=== PATIENT | male | born 1975 | race African-American/Black ===

== ENCOUNTER 2019-03-28 15:06 | Observation (INO) ==
[2019-03-28] MEDS ORDERED: NITROGLYCERIN SL 0.4 MG TABLET SL PRN (18:58)
[2019-03-28 19:47] LABS: Basophils # 0.1 10*3/uL (0.0-0.2); Basophils % 0.7 % (0.0-0.8); Eosinophils # 0.1 10*3/uL (0.0-0.87); Eosinophils % 1.6 % (0.00-10.9); Hematocrit 37.7 VOL% (42.0-52.0); Hemoglobin 12.9 GM/DL (14.0-18.0); Immature Granulocytes % 0.1 %; Immature Granulocytes Absolute 0.01 #; Lymphocytes # 1.6 10*3/uL (1.4-4.0); Lymphocytes % 19.1 % (21.2-54.2); Mean Corpuscular HGB Conc 34.2 GM/DL (32-36); Mean Corpuscular Volume 99.7 FL (87-102); Mean Platelet Volume 10.5 FL (9.6-12.0); Monocytes % 4.8 % (1.7-12.7); Neutrophils % 73.7 % (38.7-73.9); Platelet Count 264 T/CUMM (130-400); Red Blood Count 3.78 MC/CUMM (3.8-5.5); Red Cell Distribution Width 13.3 % (9.3-17.3); White Blood Count 8.3 T/CUMM (4-12)
[2019-03-28 20:05] LABS: Alanine Aminotransferase 49 U/L (16-61); Albumin 3.9 G/DL (3.4-5.0); Alkaline Phosphatase 115 U/L (45-117); Aspartate Amino Transferase 57 U/L (0-37); Blood Urea Nitrogen 20 MG/DL (7-18); Calcium 9.7 MG/DL (8.5-10.1); Glucose 80 MG/DL (74-106); Osmolality,Calculated 276.7 MOS/KG (273-304); Total Protein 7.9 G/DL (6.4-8.3)
[2019-03-28 20:08] LABS: Troponin I 0.061 NG/ML (0.00-0.045)
[2019-03-28] MEDS: ASPIRIN EC 325 MG TABLET PO SCH (21:15)
[2019-03-28] MEDS: FOLIC ACID 1 MG TABLET PO SCH (21:16)
[2019-03-28] MEDS: chlordiazePOXIDE 10 MG CAPSULE PO SCH (21:16)
[2019-03-28] MEDS: FUROSEMIDE 20 MG/2 ML VIAL IV SCH (21:16)
[2019-03-28] MEDS ORDERED: DOCUSATE SODIUM 100 MG CAPSULE PO PRN (22:02)
[2019-03-28] MEDS ORDERED: ACETAMINOPHEN 325 MG TABLET PO PRN (22:02)
[2019-03-28] MEDS ORDERED: ONDANSETRON 4 MG/2 ML VIAL IV PRN (22:02)
[2019-03-29 02:28] LABS: Thyroid Stimulating Hormone 0.586 uIU/ml (0.358-3.74)
[2019-03-29] MEDS ORDERED: ENOXAPARIN 40 MG/0.4 ML SYRINGE SUBCUT SCH (09:00)
[2019-03-29] MEDS: chlordiazePOXIDE 10 MG CAPSULE PO SCH ×4 (09:09→21:00)
[2019-03-29] MEDS: FUROSEMIDE 20 MG/2 ML VIAL IV SCH (09:09)
[2019-03-29] MEDS: NICOTINE 21 MG/24 HR PATCH TRANSDERM SCH (09:09)
[2019-03-29] MEDS: ASPIRIN EC 325 MG TABLET PO SCH (09:09)
[2019-03-29] MEDS: THIAMINE 100 MG TABLET PO SCH (09:09)
[2019-03-29 09:53] LABS: Barbiturates Screen,Urine Negative (Negative); Benzodiazepines Screen,Urine Positive (Negative); Cannabinoid Screen,Urine Positive (Negative); Opiate Screen,Urine Negative (Negative); Phencyclidine Screen,Urine Negative (Negative)
[2019-03-29 10:13] LABS: Apearance,Urine CLEAR (Clear); Bilirubin,Urine Negative (Negative); Blood, Urine Small mg/dL (Negative); Glucose,Urine (UA) Negative (Negative); Ketones,Urine 20 mg/dL (Negative); Mucus,Urine Occasional /LPF (Occasional); Nitrite,Urine Negative (Negative); Protein,Urine Negative; RBC,Urine 3 /HPF (0-4); Squamous Epithelial Cell,Urine Occasional /HPF (0-10); Urine Color Yellow (Yellow); Urine Specific Gravity 1.038 (1.001-1.035); Urine Urobilinogen < 2.0 EU/DL (0.2-1.0); WBC,Urine 1 /HPF (0-6)
[2019-03-29] MEDS ORDERED: POTASSIUM CHLORIDE RIDER 10 MEQ in PREMIX 1 EACH IV PRN (11:01)
[2019-03-29] MEDS ORDERED: MAGNESIUM SULF RIDER 2 GM in PREMIX 1 EACH IV PRN (11:01)
[2019-03-29] MEDS ORDERED: MAGNESIUM SULF RIDER 4 GM in PREMIX 1 EACH IV ONE (11:07)
[2019-03-29] MEDS: LISINOPRIL 2.5 MG TABLET PO SCH (11:39)
[2019-03-29] MEDS: CARVEDILOL 3.125 MG TABLET PO SCH ×2 (11:39→21:00)
[2019-03-29] MEDS: HEPARIN 5,000 UNIT/1 ML VIAL SUBCUT SCH ×2 (11:39→15:06)
[2019-03-29] MEDS: FOLIC ACID 1 MG TABLET PO SCH (21:00)
[2019-03-30] MEDS: HEPARIN 5,000 UNIT/1 ML VIAL SUBCUT SCH ×3 (00:05→16:33)
[2019-03-30 04:48] LABS: Basophils # 0.1 10*3/uL (0.0-0.2); Basophils % 0.9 % (0.0-0.8); Eosinophils # 0.4 10*3/uL (0.0-0.87); Eosinophils % 6.9 % (0.00-10.9); Hematocrit 38.7 VOL% (42.0-52.0); Hemoglobin 13.1 GM/DL (14.0-18.0); Immature Granulocytes % 0.4 %; Immature Granulocytes Absolute 0.02 #; Lymphocytes # 1.9 10*3/uL (1.4-4.0); Lymphocytes % 36.1 % (21.2-54.2); Mean Corpuscular HGB Conc 33.9 GM/DL (32-36); Mean Platelet Volume 10.8 FL (9.6-12.0); Monocytes % 10.6 % (1.7-12.7); Neutrophils % 45.1 % (38.7-73.9); Platelet Count 255 T/CUMM (130-400); Red Blood Count 3.91 MC/CUMM (3.8-5.5); Red Cell Distribution Width 12.9 % (9.3-17.3); White Blood Count 5.4 T/CUMM (4-12)
[2019-03-30 05:17] LABS: Calcium 8.9 MG/DL (8.5-10.1); Osmolality,Calculated 274.2 MOS/KG (273-304)
[2019-03-30] MEDS ORDERED: diphenhydrAMINE CAP 25 MG CAPSULE PO ONE (06:00)
[2019-03-30] MEDS: SODIUM CHLORIDE 0.45% 1,000 ML IV SCH ×2 (06:38→16:33)
[2019-03-30] MEDS ORDERED: HEPARIN/NACL 0.9% 2 UNITS/ML 1,000 ML IV ONE (07:19)
[2019-03-30] MEDS ORDERED: fentaNYL 100 MCG/2 ML VIAL ONE (07:19)
[2019-03-30] MEDS ORDERED: LIDOCAINE 1% 20 ML VIAL ONE (07:19)
[2019-03-30] MEDS ORDERED: MIDAZOLAM 2 MG/2 ML VIAL ONE (07:19)
[2019-03-30] MEDS ORDERED: ASPIRIN CHEW 81 MG TABLET PO ONE (07:34)
[2019-03-30] MEDS ORDERED: POTASSIUM CHLORIDE 20 MEQ TABLET PO ONE (07:36)
[2019-03-30] MEDS ORDERED: SODIUM CHLORIDE 0.9% 1,000 ML IV SCH (08:30)
[2019-03-30] MEDS: CARVEDILOL 3.125 MG TABLET PO SCH (08:57)
[2019-03-30] MEDS: NICOTINE 21 MG/24 HR PATCH TRANSDERM SCH (08:57)
[2019-03-30] MEDS: LISINOPRIL 2.5 MG TABLET PO SCH (08:57)
[2019-03-30] MEDS: ASPIRIN EC 325 MG TABLET PO SCH (08:58)
[2019-03-30] MEDS: chlordiazePOXIDE 10 MG CAPSULE PO SCH ×3 (08:58→16:34)
[2019-03-30] MEDS: THIAMINE 100 MG TABLET PO SCH (08:58)
[2019-03-30] MEDS ORDERED: ASPIRIN EC 81 MG TABLET PO SCH (09:00)
[2019-03-30] MEDS ORDERED: FUROSEMIDE 40 MG TABLET PO SCH (09:00)
[2019-03-30 09:25] LABS: Risk Ratio 2.24
[2019-03-30 12:28] VITALS: BP 106/64
== END 2019-03-30 17:50 | disposition home or self-care (01) ==
LOC: N.TELES → SUATTDRO 17:36
PROVIDERS: ADMIT Internal Medicine; ATTEND Internal Medicine
PROC: CLCCHCL (ICD-10-PCS; 2019-03-30 07:45)

== ENCOUNTER 2019-06-06 09:30 | Inpatient (IN) ==
[2019-06-06] MEDS ORDERED: chlordiazePOXIDE 25 MG CAPSULE PO PRN (13:01)
[2019-06-06] MEDS ORDERED: THIAMINE 200 MG/2 ML VIAL IV ONE (13:02)
[2019-06-06] MEDS ORDERED: chlordiazePOXIDE 25 MG CAPSULE PO SCH (13:30)
[2019-06-06] MEDS: HEPARIN 5,000 UNIT/1 ML VIAL SUBCUT SCH ×2 (13:39→22:41)
[2019-06-06] MEDS: MULTIVITAMIN (BEROCCA) TABLET PO SCH (13:39)
[2019-06-06 13:51] LABS: INR 0.9; PT Patient Result 9.6 SECS (9.6-12.2)
[2019-06-06 15:13] LABS: Hepatitis B Core IgM Quant 0.05 Index; Hepatitis B Surface Ag Quant 0.41 Index; Hepatitis B Surface Ag Result Negative (Negative); Hepatitis C Virus Ab Quant 0.16 Index; Hepatitis C Virus Ab Result Negative (Negative)
[2019-06-06 15:39] LABS: Bilirubin,Total 0.5 MG/DL (0.2-1.0); Calcium 8.1 MG/DL (8.5-10.1); Osmolality,Calculated 283.4 MOS/KG (273-304); Total Protein 6.6 G/DL (6.4-8.3)
[2019-06-06 16:00] LABS: Basophils % 0.9 % (0.0-0.8); Eosinophils # 0.1 10*3/uL (0.0-0.87); Eosinophils % 2.1 % (0.00-10.9); Hematocrit 35.9 VOL% (42.0-52.0); Hemoglobin 12.4 GM/DL (14.0-18.0); Immature Granulocytes % 0.2 %; Immature Granulocytes Absolute 0.01 #; Lymphocytes % 47.5 % (21.2-54.2); Mean Corpuscular HGB Conc 34.5 GM/DL (32-36); Mean Corpuscular Volume 96.5 FL (87-102); Mean Platelet Volume 9.7 FL (9.6-12.0); Monocytes % 5.4 % (1.7-12.7); Neutrophils % 43.9 % (38.7-73.9); Platelet Count 235 T/CUMM (130-400); Red Blood Count 3.72 MC/CUMM (3.8-5.5); Red Cell Distribution Width 13.7 % (9.3-17.3); White Blood Count 4.2 T/CUMM (4-12)
[2019-06-06] MEDS ORDERED: FUROSEMIDE 40 MG/4 ML VIAL IV SCH (16:00)
[2019-06-06] MEDS: MULTIVITAMIN INJ 10 ML in SODIUM CHLORIDE 0.9% 1,000 ML IV SCH (17:17)
[2019-06-06] MEDS ORDERED: LORazepam 2 MG/1 ML VIAL IV ONE ×2 (17:24→20:18)
[2019-06-06] MEDS: chlordiazePOXIDE 25 MG CAPSULE PO SCH (17:37)
[2019-06-06] MEDS ORDERED: METOPROLOL TARTRATE 5 MG/5 ML VIAL IV ONE (18:51)
[2019-06-06] MEDS ORDERED: FUROSEMIDE 40 MG/4 ML VIAL IV ONE (19:52)
[2019-06-06] MEDS ORDERED: FUROSEMIDE 40 MG/4 ML VIAL ONE (19:52)
[2019-06-06] MEDS ORDERED: MORPHINE 4 MG/1 ML VIAL ONE (20:07)
[2019-06-06] MEDS ORDERED: NITROGLYCERIN SL 0.4 MG TABLET SL ONE (20:14)
[2019-06-06 20:15] LABS: ABG Base Excess -3.1 MMOL/L (-2.5-2.5); ABG HCO3 21.6 MMOL/L (20-26); ABG Oxygen Saturation 88.6 % (95-100); ABG PO2 65.8 MM HG (80-95); ABG TCO2 20.5 MMOL/L (23-27); Allen Test Positive
[2019-06-06 20:18] LABS: Basophils # 0.1 10*3/uL (0.0-0.2); Basophils % 0.8 % (0.0-0.8); Eosinophils # 0.1 10*3/uL (0.0-0.87); Hematocrit 38.1 VOL% (42.0-52.0); Hemoglobin 12.6 GM/DL (14.0-18.0); Immature Granulocytes % 0.3 %; Immature Granulocytes Absolute 0.03 #; Lymphocytes # 2.9 10*3/uL (1.4-4.0); Lymphocytes % 32.3 % (21.2-54.2); Mean Corpuscular HGB Conc 33.1 GM/DL (32-36); Mean Corpuscular Volume 100.3 FL (87-102); Monocytes % 2.6 % (1.7-12.7); Platelet Count 237 T/CUMM (130-400); Red Cell Distribution Width 13.8 % (9.3-17.3); White Blood Count 9.1 T/CUMM (4-12)
[2019-06-06] MEDS ORDERED: NITROGLYCERIN DRIP 50 MG/250 ML BOTTLE IV ONE (20:23)
[2019-06-06 20:28] LABS: Troponin I 0.049 NG/ML (0.00-0.045)
[2019-06-06 20:29] LABS: Albumin 3.4 G/DL (3.4-5.0); Bilirubin,Total 1.1 MG/DL (0.2-1.0); Calcium 8.6 MG/DL (8.5-10.1); Total Protein 7.2 G/DL (6.4-8.3)
[2019-06-06] MEDS ORDERED: NITROGLYCERIN DRIP 50 MG/250 ML BOTTLE IV SCH (20:30)
[2019-06-06] MEDS: MORPHINE 4 MG/1 ML VIAL IV PRN (20:42)
[2019-06-06] MEDS ORDERED: POTASSIUM CHLORIDE 20 MEQ TABLET PO ONE (20:45)
[2019-06-06 21:16] LABS: Apearance,Urine CLEAR (Clear); Bacteria,Urine Occasional /HPF (Few); Bilirubin,Urine Negative (Negative); Blood, Urine Small mg/dL (Negative); Glucose,Urine (UA) Negative (Negative); Hyaline Casts,Urine 15 /LPF (0-3); Ketones,Urine Negative (Negative); Mucus,Urine Occasional /LPF (Occasional); Nitrite,Urine Negative (Negative); Protein,Urine 30 MG/DL; RBC,Urine 5 /HPF (0-4); Squamous Epithelial Cell,Urine Occasional /HPF (0-10); Urine Color Straw (Yellow); Urine Specific Gravity 1.008 (1.001-1.035); Urine Urobilinogen < 2.0 EU/DL (0.2-1.0); WBC,Urine <1 /HPF (0-6)
[2019-06-06 21:20] LABS: Barbiturates Screen,Urine Negative (Negative); Benzodiazepines Screen,Urine Negative (Negative); Cannabinoid Screen,Urine Positive (Negative); Opiate Screen,Urine Positive (Negative); Phencyclidine Screen,Urine Negative (Negative)
[2019-06-06] MEDS ORDERED: LORazepam 2 MG/1 ML VIAL IV PRN (22:19)
[2019-06-07] MEDS: chlordiazePOXIDE 25 MG CAPSULE PO SCH ×4 (00:38→16:56)
[2019-06-07] MEDS ORDERED: FUROSEMIDE 40 MG/4 ML VIAL IV ONE (04:24)
[2019-06-07 04:42] LABS: Basophils % 0.5 % (0.0-0.8); Eosinophils % 0.1 % (0.00-10.9); Hematocrit 38.7 VOL% (42.0-52.0); Hemoglobin 12.5 GM/DL (14.0-18.0); Immature Granulocytes % 0.3 %; Immature Granulocytes Absolute 0.03 #; Lymphocytes # 0.9 10*3/uL (1.4-4.0); Lymphocytes % 10.5 % (21.2-54.2); Mean Corpuscular HGB Conc 32.3 GM/DL (32-36); Mean Corpuscular Volume 101.6 FL (87-102); Mean Platelet Volume 9.6 FL (9.6-12.0); Monocytes % 3.3 % (1.7-12.7); Neutrophils % 85.3 % (38.7-73.9); Platelet Count 201 T/CUMM (130-400); Red Blood Count 3.81 MC/CUMM (3.8-5.5); Red Cell Distribution Width 13.6 % (9.3-17.3); White Blood Count 8.8 T/CUMM (4-12)
[2019-06-07] MEDS: MORPHINE 4 MG/1 ML VIAL IV PRN (04:43)
[2019-06-07 04:46] LABS: ABG Base Excess 2.1 MMOL/L (-2.5-2.5); ABG HCO3 26.1 MMOL/L (20-26); ABG PCO2 31.1 MM HG (35-48); ABG PH 7.505 (7.35-7.45); ABG PO2 60.5 MM HG (80-95); ABG TCO2 21.4 MMOL/L (23-27)
[2019-06-07 05:04] LABS: Troponin I 0.043 NG/ML (0.00-0.045)
[2019-06-07 05:07] LABS: Albumin 3.2 G/DL (3.4-5.0); Bilirubin,Total 2.8 MG/DL (0.2-1.0); Calcium 8.6 MG/DL (8.5-10.1); Osmolality,Calculated 282.5 MOS/KG (273-304)
[2019-06-07] MEDS: HEPARIN 5,000 UNIT/1 ML VIAL SUBCUT SCH ×3 (05:56→21:02)
[2019-06-07] MEDS: MEROPENEM 500 MG in SODIUM CHLORIDE 0.9% 100 ML IV SCH ×3 (05:56→18:09)
[2019-06-07 06:08] LABS: ABG HCO3 23.7 MMOL/L (20-26); ABG Oxygen Saturation 98.4 % (95-100); ABG PCO2 31.9 MM HG (35-48); ABG PH 7.489 (7.35-7.45); ABG PO2 141.4 MM HG (80-95); ABG TCO2 24.7 MMOL/L (23-27); Allen Test Positive; Pt O2 Delivery Device BIPAP
[2019-06-07] MEDS ORDERED: MAGNESIUM SULF RIDER 4 GM in PREMIX 1 EACH IV PRN (07:23)
[2019-06-07] MEDS ORDERED: MAGNESIUM SULF RIDER 4 GM in PREMIX 1 EACH IV ONE (07:47)
[2019-06-07] MEDS ORDERED: FUROSEMIDE 20 MG/2 ML VIAL ONE (07:59)
[2019-06-07] MEDS ORDERED: SODIUM PHOSPHATE INJ 30 MMOL in SODIUM CHLORIDE 0.9% 250 ML IV ONE (08:00)
[2019-06-07] MEDS ORDERED: FUROSEMIDE 40 MG/4 ML VIAL IV SCH (08:00)
[2019-06-07] MEDS ORDERED: FUROSEMIDE 40 MG TABLET PO SCH (09:00)
[2019-06-07] MEDS ORDERED: ISOSORBIDE MONONITRATE 30 MG TABLET PO SCH (09:01)
[2019-06-07] MEDS ORDERED: amLODIPine 5 MG TABLET PO SCH (09:02)
[2019-06-07] MEDS ORDERED: hydrALAZINE 20 MG/1 ML VIAL IV PRN (09:03)
[2019-06-07] MEDS: FUROSEMIDE 40 MG/4 ML VIAL IV SCH ×2 (09:33→15:58)
[2019-06-07] MEDS: FOLIC ACID 1 MG TABLET PO SCH (09:34)
[2019-06-07] MEDS: THIAMINE 100 MG TABLET PO SCH (09:34)
[2019-06-07] MEDS: ASPIRIN EC 81 MG TABLET PO SCH (09:34)
[2019-06-07] MEDS: LISINOPRIL 5 MG TABLET PO SCH (09:34)
[2019-06-07] MEDS: DILTIAZEM 60 MG TABLET PO SCH ×4 (09:39→21:03)
[2019-06-07] MEDS: MAGNESIUM SULF RIDER 2 GM in PREMIX 1 EACH IV PRN ×2 (09:48→11:47)
[2019-06-07 10:25] LABS: Barbiturates Screen,Urine Negative (Negative); Benzodiazepines Screen,Urine Positive (Negative); Cannabinoid Screen,Urine Positive (Negative); Opiate Screen,Urine Negative (Negative); Phencyclidine Screen,Urine Negative (Negative)
[2019-06-07] MEDS: MULTIVITAMIN INJ 10 ML in SODIUM CHLORIDE 0.9% 1,000 ML IV SCH (16:56)
[2019-06-08] MEDS: MEROPENEM 500 MG in SODIUM CHLORIDE 0.9% 100 ML IV SCH ×4 (00:17→17:17)
[2019-06-08] MEDS: chlordiazePOXIDE 25 MG CAPSULE PO SCH ×5 (00:17→22:30)
[2019-06-08 05:44] LABS: Basophils % 0.5 % (0.0-0.8); Eosinophils # 0.1 10*3/uL (0.0-0.87); Eosinophils % 1.5 % (0.00-10.9); Hematocrit 33.6 VOL% (42.0-52.0); Hemoglobin 11.5 GM/DL (14.0-18.0); Immature Granulocytes % 0.3 %; Immature Granulocytes Absolute 0.02 #; Lymphocytes # 1.6 10*3/uL (1.4-4.0); Lymphocytes % 24.2 % (21.2-54.2); Mean Corpuscular HGB Conc 34.2 GM/DL (32-36); Mean Platelet Volume 10.5 FL (9.6-12.0); Monocytes % 3.2 % (1.7-12.7); Neutrophils % 70.3 % (38.7-73.9); Platelet Count 174 T/CUMM (130-400); Red Cell Distribution Width 13.3 % (9.3-17.3); White Blood Count 6.6 T/CUMM (4-12)
[2019-06-08] MEDS: HEPARIN 5,000 UNIT/1 ML VIAL SUBCUT SCH ×3 (06:09→21:25)
[2019-06-08 06:20] LABS: Albumin 2.6 G/DL (3.4-5.0); Bilirubin,Total 4.5 MG/DL (0.2-1.0); Calcium 8.3 MG/DL (8.5-10.1); Total Protein 6.1 G/DL (6.4-8.3)
[2019-06-08] MEDS: FUROSEMIDE 40 MG/4 ML VIAL IV SCH ×2 (07:57→17:17)
[2019-06-08] MEDS: MAGNESIUM SULF RIDER 2 GM in PREMIX 1 EACH IV PRN (07:57)
[2019-06-08] MEDS: DILTIAZEM 60 MG TABLET PO SCH ×4 (09:42→21:25)
[2019-06-08] MEDS: FOLIC ACID 1 MG TABLET PO SCH (09:42)
[2019-06-08] MEDS: THIAMINE 100 MG TABLET PO SCH (09:42)
[2019-06-08] MEDS: POTASSIUM CHLORIDE 20 MEQ TABLET PO PRN (09:42)
[2019-06-08] MEDS: LISINOPRIL 5 MG TABLET PO SCH (09:42)
[2019-06-08] MEDS: MULTIVITAMIN (BEROCCA) TABLET PO SCH (09:46)
[2019-06-08] MEDS: ASPIRIN EC 81 MG TABLET PO SCH (11:47)
[2019-06-09] MEDS: MEROPENEM 500 MG in SODIUM CHLORIDE 0.9% 100 ML IV SCH ×2 (00:21→05:27)
[2019-06-09] MEDS: MULTIVITAMIN INJ 10 ML in SODIUM CHLORIDE 0.9% 1,000 ML IV SCH (01:03)
[2019-06-09] MEDS: HEPARIN 5,000 UNIT/1 ML VIAL SUBCUT SCH (04:39)
[2019-06-09] MEDS: chlordiazePOXIDE 25 MG CAPSULE PO SCH ×2 (04:41→11:31)
[2019-06-09 05:59] LABS: Basophils % 0.6 % (0.0-0.8); Eosinophils # 0.2 10*3/uL (0.0-0.87); Hematocrit 34.2 VOL% (42.0-52.0); Hemoglobin 11.5 GM/DL (14.0-18.0); Immature Granulocytes % 0.4 %; Immature Granulocytes Absolute 0.02 #; Lymphocytes # 1.8 10*3/uL (1.4-4.0); Mean Corpuscular HGB Conc 33.6 GM/DL (32-36); Mean Corpuscular Volume 98.3 FL (87-102); Mean Platelet Volume 10.3 FL (9.6-12.0); Monocytes % 4.9 % (1.7-12.7); Neutrophils % 58.1 % (38.7-73.9); Platelet Count 173 T/CUMM (130-400); Red Blood Count 3.48 MC/CUMM (3.8-5.5); Red Cell Distribution Width 13.3 % (9.3-17.3); White Blood Count 5.4 T/CUMM (4-12)
[2019-06-09 06:29] LABS: Albumin 2.4 G/DL (3.4-5.0); Bilirubin,Total 2.3 MG/DL (0.2-1.0); Calcium 9.2 MG/DL (8.5-10.1); Osmolality,Calculated 280.8 MOS/KG (273-304); Total Protein 6.1 G/DL (6.4-8.3)
[2019-06-09 06:30] LABS: Calcium 8.8 MG/DL (8.5-10.1); Osmolality,Calculated 283.5 MOS/KG (273-304)
[2019-06-09] MEDS: POTASSIUM CHLORIDE 20 MEQ TABLET PO PRN ×2 (06:38→09:59)
[2019-06-09] MEDS: MULTIVITAMIN (BEROCCA) TABLET PO SCH (09:59)
[2019-06-09] MEDS: DILTIAZEM 60 MG TABLET PO SCH (09:59)
[2019-06-09] MEDS: FOLIC ACID 1 MG TABLET PO SCH (09:59)
[2019-06-09] MEDS: ASPIRIN EC 81 MG TABLET PO SCH (09:59)
[2019-06-09] MEDS: LISINOPRIL 5 MG TABLET PO SCH (09:59)
[2019-06-09] MEDS: THIAMINE 100 MG TABLET PO SCH (09:59)
[2019-06-09] MEDS: FUROSEMIDE 40 MG/4 ML VIAL IV SCH (10:00)
[2019-06-09 10:03] VITALS: BP 94/76
== END 2019-06-09 11:50 | disposition home or self-care (01) | DRG 291 ==
LOC: N.2W → N.ICU 18:28 → N.5E 06-08 11:19
PROVIDERS: ADMIT Internal Medicine; ATTEND Internal Medicine

== ENCOUNTER 2019-07-24 09:40 | Inpatient (IN) ==
[2019-07-24] MEDS ORDERED: ASPIRIN 325 MG TABLET PO STA (10:04)
[2019-07-24] MEDS ORDERED: NITROGLYCERIN 2% OINT 1 INCH/GM PACK TOP STA (10:04)
[2019-07-24] MEDS ORDERED: NITROGLYCERIN SL 0.4 MG TABLET SL PRN (10:04)
[2019-07-24] MEDS ORDERED: FUROSEMIDE 40 MG/4 ML VIAL IV STA (10:24)
[2019-07-24 10:35] LABS: Basophils # 0.1 10*3/uL (0.0-0.2); Basophils % 0.6 % (0.0-0.8); Eosinophils % 0.2 % (0.00-10.9); Hematocrit 36.8 VOL% (42.0-52.0); Hemoglobin 12.4 GM/DL (14.0-18.0); Immature Granulocytes % 0.4 %; Immature Granulocytes Absolute 0.03 #; Lymphocytes # 0.7 10*3/uL (1.4-4.0); Lymphocytes % 8.6 % (21.2-54.2); Mean Corpuscular HGB Conc 33.7 GM/DL (32-36); Mean Corpuscular Volume 102.2 FL (87-102); Mean Platelet Volume 10.4 FL (9.6-12.0); Monocytes % 6.7 % (1.7-12.7); Neutrophils % 83.5 % (38.7-73.9); Platelet Count 190 T/CUMM (130-400); Red Cell Distribution Width 13.7 % (9.3-17.3)
[2019-07-24 10:39] LABS: Albumin 3.8 G/DL (3.4-5.0); Bilirubin,Total 2.4 MG/DL (0.2-1.0); Calcium 9.3 MG/DL (8.5-10.1); Osmolality,Calculated 275.7 MOS/KG (273-304); Total Protein 7.8 G/DL (6.4-8.3)
[2019-07-24 10:47] LABS: INR 0.9; PT Patient Result 9.5 SECS (9.6-12.2)
[2019-07-24 11:07] LABS: Barbiturates Screen,Urine Negative (Negative); Benzodiazepines Screen,Urine Negative (Negative); Cannabinoid Screen,Urine Positive (Negative); Opiate Screen,Urine Negative (Negative); Phencyclidine Screen,Urine Negative (Negative)
[2019-07-24] MEDS ORDERED: MAGNESIUM SULF RIDER 2 GM in PREMIX 1 EACH IV PRN (12:33)
[2019-07-24] MEDS ORDERED: MAGNESIUM SULF RIDER 4 GM in PREMIX 1 EACH IV PRN (12:33)
[2019-07-24] MEDS ORDERED: guaiFENesin/DM ER 600-30 MG TABLET PO PRN (12:33)
[2019-07-24] MEDS ORDERED: ONDANSETRON 4 MG/2 ML VIAL IV PRN (12:33)
[2019-07-24] MEDS ORDERED: NICOTINE 21 MG/24 HR PATCH TRANSDERM PRN (12:33)
[2019-07-24 13:30] LABS: Troponin I 0.042 NG/ML (0.00-0.045)
[2019-07-24 16:13] LABS: Troponin I 0.039 NG/ML (0.00-0.045)
[2019-07-24 16:31] LABS: Troponin I 0.043 NG/ML (0.00-0.045)
[2019-07-24] MEDS: cefTRIAXone 1,000 MG in SYRINGE 1 EACH IV SCH (16:33)
[2019-07-24] MEDS: FUROSEMIDE 40 MG/4 ML VIAL IV SCH (16:34)
[2019-07-24] MEDS: AZITHROMYCIN INJ 250 MG in SODIUM CHLORIDE 0.9% 250 ML IV SCH (16:38)
[2019-07-24] MEDS ORDERED: carvediloL 6.25 MG TABLET PO SCH (17:00)
[2019-07-25 05:48] LABS: Basophils # 0.1 10*3/uL (0.0-0.2); Basophils % 1.3 % (0.0-0.8); Eosinophils # 0.2 10*3/uL (0.0-0.87); Eosinophils % 2.8 % (0.00-10.9); Hematocrit 33.8 VOL% (42.0-52.0); Hemoglobin 11.7 GM/DL (14.0-18.0); Immature Granulocytes % 0.4 %; Immature Granulocytes Absolute 0.02 #; Lymphocytes # 1.6 10*3/uL (1.4-4.0); Mean Corpuscular HGB Conc 34.6 GM/DL (32-36); Mean Corpuscular Volume 99.7 FL (87-102); Mean Platelet Volume 10.7 FL (9.6-12.0); Monocytes % 5.1 % (1.7-12.7); Neutrophils % 60.4 % (38.7-73.9); Platelet Count 192 T/CUMM (130-400); Red Blood Count 3.39 MC/CUMM (3.8-5.5); Red Cell Distribution Width 13.3 % (9.3-17.3); White Blood Count 5.3 T/CUMM (4-12)
[2019-07-25 06:17] LABS: Albumin 3.2 G/DL (3.4-5.0); Bilirubin,Total 3.4 MG/DL (0.2-1.0); Calcium 9.1 MG/DL (8.5-10.1); Osmolality,Calculated 270.2 MOS/KG (273-304); Thyroid Stimulating Hormone 0.414 uIU/ml (0.358-3.74); Total Protein 7.2 G/DL (6.4-8.3)
[2019-07-25] MEDS ORDERED: PANTOPRAZOLE 40 MG TABLET PO SCH (09:00)
[2019-07-25] MEDS: FUROSEMIDE 40 MG/4 ML VIAL IV SCH ×2 (09:18→15:45)
[2019-07-25] MEDS: ASPIRIN EC 81 MG TABLET PO SCH (09:18)
[2019-07-25] MEDS: carvediloL 12.5 MG TABLET PO SCH ×2 (09:18→16:33)
[2019-07-25] MEDS: ENOXAPARIN 40 MG/0.4 ML SYRINGE SUBCUT SCH (09:21)
[2019-07-25] MEDS: cefTRIAXone 1,000 MG in SYRINGE 1 EACH IV SCH (15:46)
[2019-07-25] MEDS: AZITHROMYCIN INJ 250 MG in SODIUM CHLORIDE 0.9% 250 ML IV SCH (15:57)
[2019-07-25] MEDS: SACUBITRIL/VALSARTAN 49-51 MG TABLET PO SCH (21:56)
[2019-07-26 05:31] LABS: Apearance,Urine Clear (Clear); Glucose,Urine (UA) Negative (Negative); Ketones,Urine Negative (Negative); Protein,Urine Negative; Urine Color Yellow (Yellow); Urine Specific Gravity 1.009 (1.001-1.035)
[2019-07-26 05:32] LABS: Bilirubin,Urine Negative (Negative); Blood, Urine Negative (Negative); Nitrite,Urine Negative (Negative); RBC,Urine 2 /HPF (0-4); Urine Urobilinogen < 2.0 EU/DL (0.2-1.0)
[2019-07-26 05:33] LABS: Hyaline Casts,Urine 1 /LPF (0-3); WBC,Urine <1 /HPF (0-6)
[2019-07-26 05:59] LABS: Eosinophils # 0.1 10*3/uL (0.0-0.87); Eosinophils % 3.3 % (0.00-10.9); Hematocrit 38.1 VOL% (42.0-52.0); Immature Granulocytes % 0.3 %; Immature Granulocytes Absolute 0.01 #; Lymphocytes # 1.5 10*3/uL (1.4-4.0); Lymphocytes % 37.6 % (21.2-54.2); Mean Corpuscular HGB Conc 34.1 GM/DL (32-36); Mean Platelet Volume 10.4 FL (9.6-12.0); Monocytes % 7.7 % (1.7-12.7); Neutrophils % 50.1 % (38.7-73.9); Platelet Count 209 T/CUMM (130-400); Red Blood Count 3.81 MC/CUMM (3.8-5.5); Red Cell Distribution Width 13.1 % (9.3-17.3); White Blood Count 3.9 T/CUMM (4-12)
[2019-07-26 06:22] LABS: Hypochromasia 1+; Platelet Estimate Adequate
[2019-07-26 06:25] LABS: Albumin 2.7 G/DL (3.4-5.0); Bilirubin,Total 1.1 MG/DL (0.2-1.0); Calcium 8.8 MG/DL (8.5-10.1); Osmolality,Calculated 277.1 MOS/KG (273-304); Total Protein 6.6 G/DL (6.4-8.3)
[2019-07-26] MEDS: POTASSIUM CHLORIDE 20 MEQ TABLET PO PRN ×3 (07:47→17:39)
[2019-07-26] MEDS: SACUBITRIL/VALSARTAN 49-51 MG TABLET PO SCH ×2 (09:18→21:29)
[2019-07-26] MEDS: PANTOPRAZOLE 40 MG TABLET PO SCH ×2 (09:19→21:29)
[2019-07-26] MEDS: ENOXAPARIN 40 MG/0.4 ML SYRINGE SUBCUT SCH (09:19)
[2019-07-26] MEDS: ASPIRIN EC 81 MG TABLET PO SCH (09:19)
[2019-07-26] MEDS: carvediloL 12.5 MG TABLET PO SCH ×2 (09:19→16:14)
[2019-07-26] MEDS ORDERED: SODIUM CHLORIDE 0.9% 500 ML IV ONE (09:28)
[2019-07-26] MEDS: cefTRIAXone 1,000 MG in SYRINGE 1 EACH IV SCH (15:55)
[2019-07-26] MEDS: AZITHROMYCIN INJ 250 MG in SODIUM CHLORIDE 0.9% 250 ML IV SCH (16:07)
[2019-07-27 06:02] LABS: Basophils # 0.1 10*3/uL (0.0-0.2); Basophils % 1.3 % (0.0-0.8); Eosinophils # 0.1 10*3/uL (0.0-0.87); Eosinophils % 2.5 % (0.00-10.9); Hematocrit 36.7 VOL% (42.0-52.0); Hemoglobin 12.4 GM/DL (14.0-18.0); Immature Granulocytes % 0.2 %; Immature Granulocytes Absolute 0.01 #; Lymphocytes # 2.3 10*3/uL (1.4-4.0); Lymphocytes % 48.3 % (21.2-54.2); Mean Corpuscular HGB Conc 33.8 GM/DL (32-36); Mean Corpuscular Volume 100.8 FL (87-102); Mean Platelet Volume 10.1 FL (9.6-12.0); Monocytes % 9.6 % (1.7-12.7); Neutrophils % 38.1 % (38.7-73.9); Platelet Count 221 T/CUMM (130-400); Red Blood Count 3.64 MC/CUMM (3.8-5.5); Red Cell Distribution Width 12.9 % (9.3-17.3); White Blood Count 4.8 T/CUMM (4-12)
[2019-07-27 06:05] LABS: Calcium 8.8 MG/DL (8.5-10.1)
[2019-07-27 06:30] LABS: Band Neutrophils 4 % (0-10); Eosinophils 2 % (0-10); Lymphocytes 46 % (20-55); Platelet Estimate Normal; Segmented Neutrophils 39 % (50-85); Total Cells Counted 100
[2019-07-27 06:31] LABS: Anisocytosis 1+; Hypochromasia 1+; Macrocytosis 1+
[2019-07-27 06:32] LABS: Albumin 2.8 G/DL (3.4-5.0); Bilirubin,Total 0.5 MG/DL (0.2-1.0); Calcium 8.7 MG/DL (8.5-10.1); Osmolality,Calculated 279.8 MOS/KG (273-304); Total Protein 6.4 G/DL (6.4-8.3)
[2019-07-27] MEDS: POTASSIUM CHLORIDE 20 MEQ TABLET PO PRN (06:40)
[2019-07-27] MEDS ORDERED: SODIUM CHLORIDE 0.9% 500 ML IV ONE (08:19)
[2019-07-27] MEDS: ENOXAPARIN 40 MG/0.4 ML SYRINGE SUBCUT SCH (08:27)
[2019-07-27] MEDS: carvediloL 12.5 MG TABLET PO SCH (08:27)
[2019-07-27] MEDS: ASPIRIN EC 81 MG TABLET PO SCH (08:27)
[2019-07-27] MEDS: PANTOPRAZOLE 40 MG TABLET PO SCH (08:27)
[2019-07-27] MEDS: SACUBITRIL/VALSARTAN 49-51 MG TABLET PO SCH (08:28)
[2019-07-27 12:57] VITALS: BP 103/77
[2019-07-27] MEDS ORDERED: carvediloL 6.25 MG TABLET PO SCH (17:00)
[2019-07-28] MEDS ORDERED: FUROSEMIDE 40 MG TABLET PO SCH (09:00)
== END 2019-07-27 14:05 | disposition home or self-care (01) | DRG 291 ==
LOC: EDUNIT# → EDBD → N.ED 09:40 → N.EDINP 12:33 → N.TELES 14:12
PROVIDERS: ADMIT Internal Medicine; ATTEND Internal Medicine

== ENCOUNTER 2019-07-31 09:44 | Inpatient (IN) ==
[2019-07-31] MEDS ORDERED: ONDANSETRON 4 MG/2 ML VIAL IV PRN (13:06)
[2019-07-31] MEDS ORDERED: ACETAMINOPHEN 325 MG TABLET PO PRN (13:06)
[2019-07-31 13:38] LABS: Basophils % 0.5 % (0.0-0.8); Eosinophils % 0.2 % (0.00-10.9); Hematocrit 35.8 VOL% (42.0-52.0); Immature Granulocytes % 0.3 %; Immature Granulocytes Absolute 0.02 #; Lymphocytes # 0.5 10*3/uL (1.4-4.0); Lymphocytes % 8.8 % (21.2-54.2); Mean Corpuscular HGB Conc 33.5 GM/DL (32-36); Mean Corpuscular Volume 102.3 FL (87-102); Mean Platelet Volume 9.7 FL (9.6-12.0); Monocytes % 1.6 % (1.7-12.7); Neutrophils % 88.6 % (38.7-73.9); Platelet Count 254 T/CUMM (130-400); Red Cell Distribution Width 13.4 % (9.3-17.3); White Blood Count 6.2 T/CUMM (4-12)
[2019-07-31 13:54] LABS: Calcium 9.1 MG/DL (8.5-10.1); Osmolality,Calculated 278.7 MOS/KG (273-304)
[2019-07-31] MEDS: FUROSEMIDE 40 MG/4 ML VIAL IV SCH (15:24)
[2019-07-31] MEDS: ENOXAPARIN 40 MG/0.4 ML SYRINGE SUBCUT SCH (15:24)
[2019-07-31 15:44] LABS: Apearance,Urine CLEAR (Clear); Bacteria,Urine Occasional /HPF (Few); Bilirubin,Urine Negative (Negative); Blood, Urine Negative (Negative); Glucose,Urine (UA) Negative (Negative); Hyaline Casts,Urine 1 /LPF (0-3); Ketones,Urine Negative (Negative); Mucus,Urine Occasional /LPF (Occasional); Nitrite,Urine Negative (Negative); Protein,Urine Negative; RBC,Urine <1 /HPF (0-4); Urine Color Straw (Yellow); Urine Specific Gravity 1.008 (1.001-1.035); Urine Urobilinogen < 2.0 EU/DL (0.2-1.0); WBC,Urine <1 /HPF (0-6)
[2019-07-31 16:18] LABS: Barbiturates Screen,Urine Negative (Negative); Benzodiazepines Screen,Urine Negative (Negative); Cannabinoid Screen,Urine Positive (Negative); Opiate Screen,Urine Negative (Negative); Phencyclidine Screen,Urine Negative (Negative)
[2019-07-31] MEDS: carvediloL 6.25 MG TABLET PO SCH (16:58)
[2019-07-31] MEDS ORDERED: INFLUENZA VIRUS VACCINE 0.5 ML SYRINGE IM ONE (17:01)
[2019-07-31] MEDS ORDERED: PNEUMOCOCCAL VACCINE (23 VALENT) 0.5 ML VIAL IM ONE (17:03)
[2019-07-31] MEDS: DOCUSATE SODIUM 100 MG CAPSULE PO SCH (20:49)
[2019-07-31] MEDS: SACUBITRIL/VALSARTAN 49-51 MG TABLET PO SCH (20:49)
[2019-08-01 05:23] LABS: Basophils # 0.1 10*3/uL (0.0-0.2); Eosinophils # 0.1 10*3/uL (0.0-0.87); Eosinophils % 1.5 % (0.00-10.9); Hematocrit 34.7 VOL% (42.0-52.0); Hemoglobin 11.9 GM/DL (14.0-18.0); Immature Granulocytes % 0.2 %; Immature Granulocytes Absolute 0.01 #; Lymphocytes # 2.6 10*3/uL (1.4-4.0); Lymphocytes % 41.9 % (21.2-54.2); Mean Corpuscular HGB Conc 34.3 GM/DL (32-36); Mean Corpuscular Volume 98.9 FL (87-102); Mean Platelet Volume 9.9 FL (9.6-12.0); Monocytes % 10.7 % (1.7-12.7); Neutrophils % 44.7 % (38.7-73.9); Platelet Count 268 T/CUMM (130-400); Red Blood Count 3.51 MC/CUMM (3.8-5.5); Red Cell Distribution Width 13.2 % (9.3-17.3); White Blood Count 6.1 T/CUMM (4-12)
[2019-08-01 05:44] LABS: Calcium 8.9 MG/DL (8.5-10.1)
[2019-08-01] MEDS ORDERED: ASPIRIN EC 81 MG TABLET PO SCH (09:00)
[2019-08-01] MEDS ORDERED: PANTOPRAZOLE 40 MG TABLET PO SCH (09:00)
[2019-08-01] MEDS: SACUBITRIL/VALSARTAN 49-51 MG TABLET PO SCH (10:11)
[2019-08-01] MEDS: carvediloL 6.25 MG TABLET PO SCH (10:12)
[2019-08-01] MEDS: DOCUSATE SODIUM 100 MG CAPSULE PO SCH (10:12)
[2019-08-01] MEDS: FUROSEMIDE 40 MG/4 ML VIAL IV SCH (10:12)
[2019-08-01] MEDS ORDERED: MAGNESIUM OXIDE 400 MG TABLET PO ONE (10:53)
[2019-08-01] MEDS: ENOXAPARIN 40 MG/0.4 ML SYRINGE SUBCUT SCH (15:02)
== END 2019-08-01 15:15 | disposition home or self-care (01) | DRG 291 ==
LOC: N.ICU 11:42 → SUATTDRO 12:06 → N.ICU 12:06
PROVIDERS: ADMIT Internal Medicine; ATTEND Internal Medicine

== ENCOUNTER 2019-08-02 20:41 | Inpatient (IN) ==
[2019-08-02] MEDS ORDERED: ONDANSETRON 4 MG/2 ML VIAL IV STA (21:46)
[2019-08-02 22:32] LABS: Basophils % 0.7 % (0.0-0.8); Eosinophils # 0.1 10*3/uL (0.0-0.87); Eosinophils % 1.7 % (0.00-10.9); Hematocrit 40.6 VOL% (42.0-52.0); Hemoglobin 13.6 GM/DL (14.0-18.0); Immature Granulocytes % 0.2 %; Immature Granulocytes Absolute 0.01 #; Lymphocytes # 1.8 10*3/uL (1.4-4.0); Lymphocytes % 33.6 % (21.2-54.2); Mean Corpuscular HGB Conc 33.5 GM/DL (32-36); Mean Corpuscular Volume 101.5 FL (87-102); Mean Platelet Volume 9.8 FL (9.6-12.0); Monocytes % 17.4 % (1.7-12.7); Neutrophils % 46.4 % (38.7-73.9); Platelet Count 300 T/CUMM (130-400); Red Cell Distribution Width 13.1 % (9.3-17.3); White Blood Count 5.5 T/CUMM (4-12)
[2019-08-02 22:44] LABS: INR 0.9
[2019-08-02 22:58] LABS: Eosinophils 4 % (0-10); Lymphocytes 40 % (20-55); Segmented Neutrophils 43 % (50-85); Total Cells Counted 100
[2019-08-02 23:00] LABS: Macrocytosis Slight; Platelet Estimate Normal
[2019-08-02 23:03] LABS: Stomatocytes Slight
[2019-08-02 23:06] LABS: Alanine Aminotransferase 29 U/L (16-61); Albumin 3.5 G/DL (3.4-5.0); Alkaline Phosphatase 69 U/L (45-117); Aspartate Amino Transferase 13 U/L (0-37); Blood Urea Nitrogen 47 MG/DL (7-18); Estimated Glom Filtration Rate 33 ML/MIN; Glucose 95 MG/DL (74-106); Osmolality,Calculated 279.2 MOS/KG (273-304); Total Protein 7.6 G/DL (6.4-8.3); Troponin I < 0.015 NG/ML (0.00-0.045)
[2019-08-03] MEDS ORDERED: DOCUSATE SODIUM 100 MG CAPSULE PO PRN (00:24)
[2019-08-03] MEDS ORDERED: ACETAMINOPHEN 325 MG TABLET PO PRN (00:24)
[2019-08-03] MEDS ORDERED: PROMETHAZINE 25 MG TABLET PO PRN (00:24)
[2019-08-03] MEDS ORDERED: guaiFENesin/DM ER 600-30 MG TABLET PO PRN (00:24)
[2019-08-03] MEDS ORDERED: ONDANSETRON 4 MG/2 ML VIAL IV PRN (00:24)
[2019-08-03] MEDS ORDERED: ZALEPLON 5 MG CAPSULE PO PRN (00:24)
[2019-08-03 01:25] LABS: Apearance,Urine CLEAR (Clear); Bacteria,Urine Occasional /HPF (Few); Bilirubin,Urine Negative (Negative); Blood, Urine Negative (Negative); Glucose,Urine (UA) Negative (Negative); Hyaline Casts,Urine 1 /LPF (0-3); Ketones,Urine Negative (Negative); Nitrite,Urine Negative (Negative); Protein,Urine Negative; Squamous Epithelial Cell,Urine Occasional /HPF (0-10); Urine Color Yellow (Yellow); Urine Specific Gravity 1.019 (1.001-1.035); Urine Urobilinogen < 2.0 EU/DL (0.2-1.0); WBC,Urine 1 /HPF (0-6)
[2019-08-03] MEDS ORDERED: SODIUM CHLORIDE 0.9% 250 ML IV STA (01:50)
[2019-08-03 04:13] LABS: Barbiturates Screen,Urine Negative (Negative); Benzodiazepines Screen,Urine Negative (Negative); Cannabinoid Screen,Urine Positive (Negative); Opiate Screen,Urine Negative (Negative); Phencyclidine Screen,Urine Negative (Negative)
[2019-08-03 04:33] LABS: Basophils # 0.1 10*3/uL (0.0-0.2); Eosinophils # 0.1 10*3/uL (0.0-0.87); Eosinophils % 2.4 % (0.00-10.9); Hematocrit 35.7 VOL% (42.0-52.0); Hemoglobin 11.9 GM/DL (14.0-18.0); Lymphocytes % 39.4 % (21.2-54.2); Mean Corpuscular HGB Conc 33.3 GM/DL (32-36); Mean Corpuscular Volume 100.8 FL (87-102); Mean Platelet Volume 10.2 FL (9.6-12.0); Monocytes % 20.6 % (1.7-12.7); Neutrophils % 36.6 % (38.7-73.9); Platelet Count 271 T/CUMM (130-400); Red Blood Count 3.54 MC/CUMM (3.8-5.5)
[2019-08-03 04:55] LABS: Atypical Lymphocytes Few; Eosinophils 1 % (0-10); Lymphocytes 48 % (20-55); Platelet Estimate Adequate; Segmented Neutrophils 35 % (50-85); Total Cells Counted 100
[2019-08-03 05:10] LABS: Albumin 3.3 G/DL (3.4-5.0); Bilirubin,Total 0.4 MG/DL (0.2-1.0); Calcium 8.9 MG/DL (8.5-10.1); Osmolality,Calculated 281.1 MOS/KG (273-304); Total Protein 6.8 G/DL (6.4-8.3)
[2019-08-03] MEDS: ASPIRIN CHEW 81 MG TABLET PO SCH (09:48)
[2019-08-03] MEDS: FOLIC ACID 0.4 MG TABLET PO SCH (09:48)
[2019-08-03] MEDS: PANTOPRAZOLE 40 MG TABLET PO SCH (09:48)
[2019-08-03] MEDS: NICOTINE 21 MG/24 HR PATCH TRANSDERM SCH (09:48)
[2019-08-03] MEDS ORDERED: SODIUM CHLORIDE 0.9% 500 ML IV ONE (12:12)
[2019-08-03] MEDS: SODIUM CHLORIDE 0.9% 1,000 ML IV SCH (16:42)
[2019-08-03] MEDS ORDERED: ENOXAPARIN 30 MG/0.3 ML SYRINGE SUBCUT SCH (21:00)
[2019-08-04] MEDS: SODIUM CHLORIDE 0.9% 1,000 ML IV SCH (06:08)
[2019-08-04] MEDS: PANTOPRAZOLE 40 MG TABLET PO SCH (09:31)
[2019-08-04] MEDS: FOLIC ACID 0.4 MG TABLET PO SCH (09:31)
[2019-08-04] MEDS: NICOTINE 21 MG/24 HR PATCH TRANSDERM SCH (09:32)
[2019-08-04] MEDS: ASPIRIN CHEW 81 MG TABLET PO SCH (09:32)
[2019-08-04 17:43] VITALS: BP 126/84
== END 2019-08-04 17:26 | disposition home or self-care (01) | DRG 641 ==
LOC: N.ED 20:41 → N.EDINP 20:41 → SUATTDRO 08-03 00:24 → N.TELEN 08-03 02:48
PROVIDERS: ADMIT Internal Medicine; ATTEND Internal Medicine Cardiovascular Disease